=== PATIENT | female | born 1955 | race Caucasian/White ===

== ENCOUNTER 2016-12-08 11:19 | Outpatient (CLI) | payer OTHER ==
[2016-12-08 19:33] LABS: BASOPHILS % (AUTO) 0.5 %; EOSINOPHILS # (AUTO) 0.1 10^3/uL (0.0-0.7); EOSINOPHILS % (AUTO) 2.2 %; HCT - HEMATOCRIT 44.6 % (37.0-47.0); HGB - HEMOGLOBIN 14.9 g/dL (12.0-16.0); LYMPHOCYTES # (AUTO) 1.3 10^3/uL (1.5-3.5); LYMPHOCYTES % (AUTO) 23.4 %; MEAN CORPUSCULAR HEMOGLOBIN 32.3 pg (27.0-31.0); MEAN CORPUSCULAR HGB CONC 33.5 g/dL (32.0-36.0); MEAN CORPUSCULAR VOLUME 96.3 fL (81.0-99.0); MEAN PLATELET VOLUME 8.3 fL (7.9-10.8); MONOCYTES # (AUTO) 0.2 10^3/uL (0.0-1.0); MONOCYTES % (AUTO) 2.8 %; NEUTROPHILS % (AUTO) 71.1 %; NUCLEATED RED BLOOD CELLS AUTO 0.3 /100WBC; RED BLOOD COUNT 4.63 10^6/uL (4.20-5.40); RED CELL DISTRIBUTION WIDTH 12.3 % (12.0-15.0); UNCORRECTED WHITE BLOOD COUNT 5.7 x10^3/uL; WHITE BLOOD COUNT 5.7 x10^3/uL (4.8-10.8)
[2016-12-08 19:59] LABS: ALBUMIN/GLOBULIN RATIO 1.3 (1.0-2.2); BILIRUBIN,TOTAL 1.1 mg/dL (0.2-1.0); BUN - BLOOD UREA NITROGEN 13 mg/dL (6-20); CALCIUM 9.1 mg/dL (8.5-10.3); CARBON DIOXIDE - CO2 26 mmol/L (21-32); CHLORIDE 104 mmol/L (101-111); CHOLESTEROL 241 mg/dL; CREATININE 0.8 mg/dL (0.4-1.0); GFR - MDRD 73 (>89); GLUCOSE 99 mg/dL (70-100); HDL CHOLESTEROL 60 mg/dL; LDL/HDL RATIO 2.3 (<4.4); SODIUM 138 mmol/L (135-145); TOTAL PROTEIN 7.1 g/dL (6.7-8.2); TRIGLYCERIDES 209 mg/dL; VLDL CHOLESTEROL 42 mg/dL
[2016-12-08 20:54] LABS: HEMOGLOBIN A1C 0.57 g/dL
== END 2016-12-08 11:20 | disposition home or self-care (01) ==
LOC: LAB.WCP 11:19
PROVIDERS: ATTEND Family Medicine
DX: R73.9 Hyperglycemia, unspecified (principal); I10 Essential (primary) hypertension; K21.9 Gastro-esophageal reflux disease without esophagitis; E78.5 Hyperlipidemia, unspecified; Z79.899 Other long term (current) drug therapy
CPT/HCPCS: 36415; 80053; 80061; 83036; 84443; 85025

== ENCOUNTER 2016-12-30 10:49 | Outpatient (CLI) | payer OTHER ==
--- NOTE | 2016-12-31 13:24 | Mammography Report ---
DIGITAL BILATERAL SCREENING MAMMOGRAM: 12/30/2016 CLINICAL HISTORY: A 61-year-old female in for routine screening mammogram. Family history indicates her mother had breast cancer at age 65. Patient has had no prior breast surgeries. COMPARISON: 10/30/2006, 08/29/2013, 05/08/2015. TECHNIQUE: Craniocaudad and oblique lateral views of each breast were obtained with Hologic full-field digital mammography. FINDINGS: Breasts are almost entirely composed of fat. There is some minimal glandular hyperplasia in each subareolar region. Patient has developed some calcifications in the 12 to 1 o'clock position of the right breast since preceding mammogram of 05/08/2015. These calcifications are in the anterior aspect of the right breast approximately 4 cm superior to the right nipple. Recommend patient return for magnification craniocaudad and lateral medial view for further evaluation. No significant masses are detected in the breasts. No other changes are seen. IMPRESSION: PATIENT HAS DEVELOPED SOME CALCIFICATIONS IN THE 12 TO 1 O'CLOCK POSITION OF THE ANTERIOR ASPECT OF THE RIGHT BREAST SINCE PRECEDING MAMMOGRAM OF 06/07/2015. RECOMMEND PATIENT RETURN FOR MAGNIFICATION VIEWS OF THE RIGHT BREAST FOR FURTHER EVALUATION. BI-RADS 0. Incomplete. Needs additional imaging evaluation. Magnification views of the right breast. JOB #: [id number] EXT JOB #: [id number] TAINA
== END 2016-12-30 10:50 | disposition home or self-care (01) ==
LOC: DI 10:49
PROVIDERS: ATTEND Physician Assistant Medical
DX: Z12.31 Encounter for screening mammogram for malignant neoplasm of breast (principal); R92.1 Mammographic calcification found on diagnostic imaging of breast
CPT/HCPCS: 77067

== ENCOUNTER 2017-01-27 11:16 | Outpatient (CLI) | payer OTHER ==
--- NOTE | 2017-01-27 13:56 | Mammography Report ---
DIGITAL DIAGNOSTIC RIGHT BREAST MAMMOGRAM: 01/27/2017 CLINICAL HISTORY: A 61-year-old asymptomatic female recalled from a screening mammogram (12/30/2016) for developing calcifications. TECHNIQUE: Magnification CC/true lateral and open true lateral views obtained. FINDINGS: Scattered fibroglandular tissue is again identified. There are loosely grouped, predominantly round calcifications in the 12 to 1 o' clock middle position. There is no definite pleomorphism. There is no associated mass or distortion. Recommend follow-up magnification views to confirm benign progression or stability. The remainder of the parenchymal pattern is unremarkable. IMPRESSION: BIRADS CATEGORY 3 - PROBABLY BENIGN. RECOMMEND FOLLOWUP MAGNIFICATION VIEWS IN SIX MONTHS. STANDARD QUALIFYING STATEMENTS 1. This examination was reviewed with the aid of Computer-Aided Detection (CAD). 2. A negative or benign imaging report should not delay biopsy if clinically suspicious findings are present. Consider surgical consultation if warranted. More than 5% of cancers are not identified by imaging. 3. Dense breasts may obscure an underlying neoplasm. JOB #: [id number] EXT JOB #: MTDD
== END 2017-01-27 11:17 | disposition home or self-care (01) ==
LOC: DI 11:16
PROVIDERS: ATTEND Physician Assistant Medical
DX: R92.1 Mammographic calcification found on diagnostic imaging of breast (principal)

== ENCOUNTER 2017-03-03 23:38 | Emergency (ER) | payer OTHER ==
--- NOTE | 2017-03-04 00:32 | ED Physician Documentation ---
PD HPI DYSPNEA - Stated complaint Stated Complaint: SOA - Chief complaint Chief Complaint: Resp - History obtained from History obtained from: Patient, Family - History of Present Illness Timing - onset: Yesterday Timing - onset during: Rest Timing - duration: Days (1) Timing - details: Gradual onset, Still present Inciting event(s): URI Improved by: Rest Worsened by: Coughing Associated symptoms: Cough, Wheezing Similar symptoms before: Diagnosis (uri) Recently seen: Not recently seen - Additional information Additional information: 62-year-old female has returned from a cruise in the [place] and she has developed cough congestion and wheezing. She has not had fever with this she does have significant postnasal drainage. Review of Systems Constitutional: reports: Myalgias. denies: Fever Eyes: denies: Decreased vision Ears: denies: Ear pain Nose: reports: Rhinorrhea / runny nose, Congestion Throat: reports: Sore throat Cardiac: denies: Chest pain / pressure, Palpitations Respiratory: reports: Cough, Wheezing. denies: Dyspnea GI: denies: Abdominal Pain, Nausea, Vomiting : denies: Dysuria, Frequency PD PAST MEDICAL HISTORY - Past Medical History Cardiovascular: Hypertension, High cholesterol Respiratory: None Endocrine/Autoimmune: None GI: GERD, GI bleed, Other : None HEENT: Chronic vision loss Psych: Claustrophobia Musculoskeletal: None Derm: None - Past Surgical History Past Surgical History: No General: Colonoscopy, EGD Derm: Other - Present Medications Home Medications: Ambulatory Orders Medication Instructions Recorded Confirmed Epinephrine [Epipen] 0.3 mg IM ONCE PRN #2 unit 02/01/13 06/25/15 Hydrochlorothiazide 25 mg PO 08/02/13 06/25/15 Metoprolol Tartrate 25 mg PO 08/02/13 06/25/15 Multivitamin [Multi-Vitamin Daily] 1 DAILY 06/25/15 06/25/15 Albuterol Sulf [Ventolin Hfa 1 - 2 puffs INH Q4HR PRN #1 inhaler 03/04/17 Inhaler] Azithromycin [Zithromax] 250 mg PO DAILY #6 tablet 03/04/17 Benzonatate [Tessalon] 100 - 200 mg PO TID PRN #20 capsule 03/04/17 - Allergies Allergies/Adverse Reactions: Allergies Allergy/AdvReac Type Severity Reaction Status Date / Time adhesive Allergy Rash Verified 09/19/17 23:47 latex Allergy Hives Verified 03/03/17 23:47 venom-honey bee Allergy throat Verified 03/03/17 23:47 [bee venom (honey bee)] swelling - Social History Does the pt smoke?: No Smoking Status: Never smoker Does the pt drink ETOH?: Yes Does the pt have substance abuse?: No PD ED PE NORMAL - Vitals Vital signs reviewed: Yes (Hypertensive) - General General: No acute distress, Well developed/nourished - HEENT HEENT: Atraumatic, PERRL, EOMI, Other (Both TMs are erythematous with indistinct landmarks.Pharynx is with mild erythema.) - Neck Neck: Supple, no meningeal sign, No bony TTP - Cardiac Cardiac: RRR, No murmur - Respiratory Respiratory: No respiratory distress, Other (Diminished breath sounds.) - Abdomen Abdomen: Soft, Non tender - Back Back: No CVA TTP, No spinal TTP - Derm Derm: Normal color, Warm and dry, No rash - Extremities Extremities: No deformity, No edema - Neuro Neuro: No motor deficit, No sensory deficit - Psych Psych: Normal mood, Normal affect Results - Vitals Vitals: Vital Signs - 24 hr 03/03/17 03/04/17 23:45 02:19 Temperature 37.1 C Heart Rate 80 69 Respiratory 18 17 Rate Blood Pressure 156/82 H 146/87 H O2 Saturation 97 97 Oxygen O2 Source Room air - Labs Labs: Laboratory Tests 03/04/17 00:40 Group A Strep Rapid Negative - Rads (name of study) 2 view chest Radiology: Prelim report reviewed (Impression: Negative chest.), EMP read indepedently, See rad report PD MEDICAL DECISION MAKING - ED course Complexity details: reviewed results, re-evaluated patient, considered differential, d/w patient, d/w family ED course: 8-year-old female with a cough and congestion has bilateral otitis on examination she does have some reactive airway as well and she is administered a DuoNeb treatment with some improvement. She subsequently administered dexamethasone 10 mg orally and we will start her on some azithromycin. Departure - Departure Disposition: 01 Home, Self Care Clinical Impression: Otitis media Qualifiers: Otitis media type: suppurative Chronicity: acute Laterality: bilateral Recurrence: not specified as recurrent Spontaneous tympanic membrane rupture: without spontaneous rupture Qualified Code(s): H66.003 - Acute suppurative otitis media without spontaneous rupture of ear drum, bilateral Condition: Stable Instructions: ED Otitis Media Acute Adult Follow-Up: Lainey Monsivais PA-C [Primary Care Provider] - Prescriptions: Albuterol Sulf [Ventolin Hfa Inhaler] 1 - 2 puffs INH Q4HR PRN #1 inhaler PRN Reason: Shortness Of Air/Wheezing Benzonatate [Tessalon] 100 - 200 mg PO TID PRN #20 capsule PRN Reason: Cough Azithromycin [Zithromax] 250 mg PO DAILY #6 tablet Discharge Date/Time: 03/04/17 02:26
[2017-03-04] MEDS ORDERED: IPRATROPIUM/ALBUTEROL 3 ML NEB INH STA (00:46)
[2017-03-04] MEDS ORDERED: IPRATROPIUM/ALBUTEROL 3 ML NEB INH ONE ×2 (00:53→01:16)
[2017-03-04 01:32] LABS: RAPID STREP SCREEN REAGENT QC YELLOW (YELLOW)
[2017-03-04] MEDS ORDERED: IOPAMIDOL-300 100 ML VIAL IVP ONE (01:40)
--- NOTE | 2017-03-04 01:45 | XRAY Preliminary Report ---
Exam: XR Chest 2 View PA/LAT IMPRESSION: Negative chest. [facility] SITE ID: [id number]
--- NOTE | 2017-03-04 01:48 | XRAY Report ---
EXAM: CHEST RADIOGRAPHY EXAM DATE: 03/04/2017 01:17 AM. CLINICAL HISTORY: Shortness of breath COMPARISON: None. TECHNIQUE: 2 views. FINDINGS: Lungs/Pleura: No focal opacities evident with exception of minimal left lung base probable linear ate lectasis or scarring. No pleural effusion. No pneumothorax. Normal volumes. Mediastinum: Heart and mediastinal contours are unremarkable. Other: None. IMPRESSION: Negative chest. [facility] Referring Provider Line: [phone] SITE ID: [id number]
[2017-03-04] MEDS ORDERED: DEXAMETHASONE 10 MG/ML VIAL PO STA (02:09)
[2017-03-04] MEDS ORDERED: DEXAMETHASONE 10 MG/ML VIAL ONE (02:18)
[2017-03-04 02:20] VITALS: BP 146/87
== END 2017-03-04 02:26 | disposition home or self-care (01) ==
LOC: ED 23:38
DX: H66.003 Acute suppurative otitis media without spontaneous rupture of ear drum, bilateral (principal); I10 Essential (primary) hypertension; E78.00 Pure hypercholesterolemia, unspecified; K21.9 Gastro-esophageal reflux disease without esophagitis
CPT/HCPCS: 71020; 87070; 87430; 99283; 99284; J7620

== ENCOUNTER 2017-08-05 10:52 | Outpatient (CLI) | payer OTHER ==
--- NOTE | 2017-08-05 14:52 | Mammography Report ---
DIGITAL DIAGNOSTIC RIGHT MAMMOGRAM: 08/05/2017 CLINICAL INDICATION: Followup calcifications. COMPARISON: 01/27/2017, 12/30/2016, 05/08/2015, 08/29/2013. TECHNIQUE: Right CC, MLO, true lateral, spot magnification views of the right breast again demonstrates scattered fibroglandular densities. The calcifications in question, in the right upper central anterior breast remain punctate on spot magnification views. No developing pleomorphism is seen. No associated mass or architectural distortion is appreciated. IMPRESSION: PROBABLE BENIGN CALCIFICATIONS. RECOMMENDATIONS: Diagnostic bilateral mammogram in 6 months, to assure stability. BIRADS category 3, probable benign findings. STANDARD QUALIFYING STATEMENTS 1. This examination was reviewed with the aid of Computed-Aided Detection (CAD). 2. A negative or benign imaging report should not delay biopsy if clinically suspicious findings are present. Consider surgical consultation if warranted. More than 5% of cancers are not identified by imaging. 3. Dense breasts may obscure an underlying neoplasm. TD: 08/05/2017 14:51
== END 2017-08-05 10:53 | disposition home or self-care (01) ==
LOC: DI 10:52
PROVIDERS: ATTEND Physician Assistant Medical
DX: R92.1 Mammographic calcification found on diagnostic imaging of breast (principal)

== ENCOUNTER 2017-09-29 08:00 | Outpatient (CLI) | payer OTHER ==
[2017-09-29 19:08] LABS: BASOPHILS # (AUTO) 0.1 10^3/uL (0.0-0.1); BASOPHILS % (AUTO) 1.4 %; EOSINOPHILS # (AUTO) 0.1 10^3/uL (0.0-0.7); EOSINOPHILS % (AUTO) 1.4 %; LYMPHOCYTES # (AUTO) 1.8 10^3/uL (1.5-3.5); LYMPHOCYTES % (AUTO) 29.2 %; MEAN CORPUSCULAR HEMOGLOBIN 31.1 pg (27.0-31.0); MEAN CORPUSCULAR HGB CONC 32.9 g/dL (32.0-36.0); MEAN CORPUSCULAR VOLUME 94.6 fL (81.0-99.0); MEAN PLATELET VOLUME 8.4 fL (7.9-10.8); MONOCYTES # (AUTO) 0.5 10^3/uL (0.0-1.0); MONOCYTES % (AUTO) 7.7 %; NEUTROPHILS # (AUTO) 3.7 10^3/uL (1.5-6.6); NEUTROPHILS % (AUTO) 60.3 %; PLT - PLATELET COUNT 304 10^3/uL (130-450); RED BLOOD COUNT 4.81 10^6/uL (4.20-5.40); RED CELL DISTRIBUTION WIDTH 12.4 % (12.0-15.0); WHITE BLOOD COUNT 6.1 x10^3/uL (4.8-10.8)
[2017-09-29 19:30] LABS: HB2 TOTAL 16.9 g/dL; HEMOGLOBIN A1C 0.56 g/dL; HEMOGLOBIN A1C % 5.2 % (4.6-6.2)
[2017-09-29 19:37] LABS: CHOL/HDL RATIO 4.9 (<4.4); CHOLESTEROL 274 mg/dL; HDL CHOLESTEROL 56 mg/dL; LDL CHOLESTEROL,CALCULATED 158 mg/dL; LDL/HDL RATIO 2.8 (<4.4); VLDL CHOLESTEROL 60 mg/dL
== END 2017-09-29 08:01 | disposition home or self-care (01) ==
LOC: LAB.WCP 08:00
PROVIDERS: ATTEND Family Medicine
DX: Z00.00 Encounter for general adult medical examination without abnormal findings (principal); R73.9 Hyperglycemia, unspecified; E78.5 Hyperlipidemia, unspecified
CPT/HCPCS: 36415; 80061; 83036; 83721; 84443; 85025

== ENCOUNTER 2017-12-08 08:00 | Outpatient (CLI) | payer OTHER ==
[2017-12-08 19:13] LABS: ALBUMIN 4.1 g/dL (3.2-5.5); ALBUMIN/GLOBULIN RATIO 1.2 (1.0-2.2); BILIRUBIN,TOTAL 1.3 mg/dL (0.2-1.0); CREATININE 0.8 mg/dL (0.4-1.0); TOTAL PROTEIN 7.6 g/dL (6.7-8.2)
== END 2017-12-08 08:01 | disposition home or self-care (01) ==
LOC: LAB.WCP 08:00
PROVIDERS: ATTEND Physician Assistant Medical
DX: Z00.00 Encounter for general adult medical examination without abnormal findings (principal)
CPT/HCPCS: 36415; 80053

== ENCOUNTER 2017-12-16 02:11 | Emergency (ER) | payer OTHER ==
[2017-12-16] MEDS ORDERED: ONDANSETRON ODT 4 MG TABLET TL STA (02:30)
--- NOTE | 2017-12-16 03:34 | ED Physician Documentation ---
History of Present Illness - Stated complaint Stated Complaint: SOA - Chief complaint Chief Complaint: Resp - History obtained from History obtained from: Patient - History of Present Illness Timing: Today Improved by: nothing Worsened by: no exacerbating factors (n/v) but inciting factor likely was first dose of codeine-containing cough syrup - Additonal information Additional information: 1 week of cough, mild and intermittent dyspnea. Saw PMD earlier today, was prescribed albuterol MDI, benzonatate, guaifenesin AC. Although she has had codeine in the past without recollection of side effects, within 30-40 minutes of her first dose of the guiafenesin AC, patient experienced nausea and vomiting which persists in ED. She developed bifrontal ARORA subsequent to n/v onset. Review of Systems Constitutional: denies: Fever, Chills, Sweats Throat: denies: Sore throat Cardiac: reports: Reviewed and negative Respiratory: reports: Dyspnea, Cough GI: reports: Nausea, Vomiting. denies: Abdominal Pain, Constipation, Diarrhea PD PAST MEDICAL HISTORY - Past Medical History Cardiovascular: Hypertension, High cholesterol Respiratory: None Endocrine/Autoimmune: None GI: GERD, GI bleed, Other : None HEENT: Chronic vision loss Psych: Claustrophobia Musculoskeletal: None Derm: None - Past Surgical History Past Surgical History: No General: Colonoscopy, EGD Derm: Other - Present Medications Home Medications: Ambulatory Orders Medication Instructions Recorded Confirmed Epinephrine [Epipen] 0.3 mg IM ONCE PRN #2 unit 02/01/13 06/25/15 Hydrochlorothiazide 25 mg PO 08/02/13 06/25/15 Metoprolol Tartrate 25 mg PO 08/02/13 06/25/15 Multivitamin [Multi-Vitamin Daily] 1 DAILY 06/25/15 06/25/15 Albuterol Sulf [Ventolin Hfa 1 - 2 puffs INH Q4HR PRN #1 inhaler 03/04/17 Inhaler] Benzonatate [Tessalon] 100 - 200 mg PO TID PRN #20 capsule 03/04/17 guaiFENesin [Guaifenesin] 100 mg PO 12/16/17 12/16/17 predniSONE [Prednisone] 20 mg PO DAILY 12/16/17 traMADol [Ultram] 50 - 100 mg PO Q6H PRN #20 tablet 12/16/17 - Allergies Allergies/Adverse Reactions: Allergies Allergy/AdvReac Type Severity Reaction Status Date / Time adhesive Allergy Rash Verified 12/16/17 02:35 latex Allergy Hives Verified 12/16/17 02:35 venom-honey bee Allergy throat Verified 12/16/17 02:35 [bee venom (honey bee)] swelling - Social History Does the pt smoke?: No Smoking Status: Never smoker Does the pt drink ETOH?: Yes Does the pt have substance abuse?: No PD ED PE NORMAL - Vitals Vital signs reviewed: Yes - General General: Alert and oriented X 3, No acute distress (NAD except emesis x 1 during H+P), Well developed/nourished - Neck Neck: Supple, no meningeal sign - Cardiac Cardiac: RRR, No murmur - Respiratory Respiratory: No respiratory distress, Clear bilaterally - Abdomen Abdomen: Normal bowel sounds, Soft, Non tender, Non distended - Extremities Extremities: No edema Results - Vitals Vitals: Oxygen O2 Source Room air PD MEDICAL DECISION MAKING - ED course Complexity details: re-evaluated patient, considered differential, d/w patient ED course: Given PO zofran without improvement. Subsequently given phenergan, ultram (for headache), and decadron (for bronchitis, spastic cough). On reevaluation after these medications, she is in NAD and reports resolution of her n/v and significant improvement in her headache. Given second dose of ultram and then discharged. - Sepsis Event Vital Signs: Oxygen O2 Source Room air Departure - Departure Disposition: 01 Home, Self Care Clinical Impression: Bronchitis Vomiting Qualifiers: Vomiting type: unspecified Vomiting Intractability: non-intractable Nausea presence: with nausea Qualified Code(s): R11.2 - Nausea with vomiting, unspecified Condition: Good Instructions: ED Upper Resp Infec No Abx Tx, ED Nausea Vomiting Follow-Up: Lainey Monsivais PA-C [Primary Care Provider] - Prescriptions: traMADol [Ultram] 50 - 100 mg PO Q6H PRN #20 tablet PRN Reason: Pain Discharge Date/Time: 12/16/17 05:38
[2017-12-16] MEDS ORDERED: traMADol 50 MG TABLET PO STA ×2 (03:58→05:27)
[2017-12-16] MEDS ORDERED: PROMETHAZINE 25 MG TABLET PO STA (03:58)
[2017-12-16] MEDS ORDERED: DEXAMETHASONE 10 MG/ML VIAL PO STA (03:58)
[2017-12-16 05:33] VITALS: BP 133/75
== END 2017-12-16 05:38 | disposition home or self-care (01) ==
LOC: ED 02:11
DX: J40 Bronchitis, not specified as acute or chronic (principal); R11.2 Nausea with vomiting, unspecified; I10 Essential (primary) hypertension
CPT/HCPCS: 99283; A9270; Q0162; Q0169

== ENCOUNTER 2017-12-19 09:45 | Emergency (ER) | payer OTHER ==
--- NOTE | 2017-12-19 10:52 | ED Physician Documentation ---
PD HPI DYSPNEA - Stated complaint Stated Complaint: SOA - Chief complaint Chief Complaint: Resp - History obtained from History obtained from: Patient - History of Present Illness Timing - onset: How many weeks ago (1) Timing - onset during: Rest, Light activity Timing - details: Gradual onset, Still present, Waxing and waning (she has had the cough worst at night. She had cough for a week, with some nausea along with it. Seen by PMD and got Rx for codeine cough med, which made her vomit. Seen in ER for the vomiting and was improved with Zofran and then given Rx for tramadol and steroid. Also had Albuterol MDI and Tessalon. She says the tramadol made her nauseated as well and did not help with the cough. Had trouble sleeping. Here due to persistent frequent cough that is keeping her from sleeping and also continues now during the day today. She says she had not used the Albuterol but only once.) Inciting event(s): URI Worsened by: Laying flat, Coughing Associated symptoms: Cough, Wheezing. No: Fever, Hemoptysis, Chest pain / discomfort, Palpitations, Bilateral edema Similar symptoms before: Has not had sx before Recently seen: Clinic, Emergency Dept Review of Systems Constitutional: reports: Myalgias. denies: Fever Nose: reports: Congestion. denies: Rhinorrhea / runny nose Throat: denies: Sore throat Cardiac: denies: Chest pain / pressure, Palpitations Respiratory: reports: Dyspnea, Cough. denies: Wheezing GI: reports: Nausea, Vomiting (after taking prior meds) Skin: denies: Rash, Lesions Neurologic: denies: Generalized weakness, Near syncope PD PAST MEDICAL HISTORY - Past Medical History Past Medical History: Yes Cardiovascular: Hypertension, High cholesterol Respiratory: None Endocrine/Autoimmune: None GI: GERD, GI bleed, Other : None HEENT: Chronic vision loss Psych: Claustrophobia Musculoskeletal: None Derm: None - Past Surgical History Past Surgical History: No General: Colonoscopy, EGD Derm: Other - Present Medications Home Medications: Ambulatory Orders Medication Instructions Recorded Confirmed Epinephrine [Epipen] 0.3 mg IM ONCE PRN #2 unit 02/01/13 06/25/15 Hydrochlorothiazide 25 mg PO 08/02/13 06/25/15 Metoprolol Tartrate 25 mg PO 08/02/13 06/25/15 Multivitamin [Multi-Vitamin Daily] 1 DAILY 06/25/15 06/25/15 Albuterol Sulf [Ventolin Hfa 1 - 2 puffs INH Q4HR PRN #1 inhaler 03/04/17 Inhaler] Benzonatate [Tessalon] 100 - 200 mg PO TID PRN #20 capsule 03/04/17 guaiFENesin [Guaifenesin] 100 mg PO 12/16/17 12/16/17 predniSONE [Prednisone] 20 mg PO DAILY 12/16/17 traMADol [Ultram] 50 - 100 mg PO Q6H PRN #20 tablet 12/16/17 HYDROcod/ACETAM 5/325 [[employer] 5/325] 1 tab PO Q6H PRN #15 tablet 12/19/17 Ondansetron Odt [Zofran] 4 mg TL Q6H PRN #15 tablet 12/19/17 - Allergies Allergies/Adverse Reactions: Allergies Allergy/AdvReac Type Severity Reaction Status Date / Time adhesive Allergy Rash Verified 12/19/17 10:09 latex Allergy Hives Verified 12/19/17 10:09 venom-honey bee Allergy throat Verified 12/19/17 10:09 [bee venom (honey bee)] swelling codeine AdvReac Emesis Verified 12/19/17 10:38 - Social History Does the pt smoke?: No Smoking Status: Never smoker Does the pt drink ETOH?: Yes Does the pt have substance abuse?: No PD ED PE NORMAL - Vitals Vital signs reviewed: Yes - General General: Alert and oriented X 3, No acute distress (but is having repetitive light cough, more with deep breathing, seems likely bronchospastic than phlegmatic. ), Well developed/nourished - HEENT HEENT: Pharynx benign - Neck Neck: Supple, no meningeal sign, No adenopathy - Cardiac Cardiac: RRR, No murmur - Respiratory Respiratory: No: Clear bilaterally (diffuse mild wheezing, and moderate tightness. No coarse nor fine crackles. ) - Abdomen Abdomen: Soft, Non tender - Back Back: No CVA TTP - Derm Derm: Normal color, Warm and dry - Extremities Extremities: No tenderness to palpate, Normal ROM s pain, No edema, No calf tenderness / cord - Neuro Neuro: Alert and oriented X 3, No motor deficit, Normal speech Results - Vitals Vitals: Oxygen O2 Source Room air PD MEDICAL DECISION MAKING - ED course Complexity details: reviewed results, re-evaluated patient (she felt okay and less coughing (but still some) after neb and hydrocodone. No nausea though. ), considered differential, d/w patient - Sepsis Event Vital Signs: Oxygen O2 Source Room air Departure - Departure Disposition: 01 Home, Self Care Clinical Impression: Upper respiratory infection Qualifiers: URI type: unspecified URI Qualified Code(s): J06.9 - Acute upper respiratory infection, unspecified Dyspnea Qualifiers: Dyspnea type: shortness of breath Qualified Code(s): R06.02 - Shortness of breath Condition: Stable Record reviewed to determine appropriate education?: Yes Prescriptions: HYDROcod/ACETAM 5/325 [[employer] 5/325] 1 tab PO Q6H PRN #15 tablet PRN Reason: Pain Ondansetron Odt [Zofran] 4 mg TL Q6H PRN #15 tablet PRN Reason: Nausea / Vomiting Comments: Continue the steroid script for a week. Use the Albuterol inhaler 2-3 puffs 4 times daily for a week then as needed. Add Hydrocodone for couhg, with Zofran if needed for nausea. Recheck if not improving over the next few days. Discharge Date/Time: 12/19/17 12:06
[2017-12-19] MEDS ORDERED: ALBUTEROL NEB 2.5 MG/3 ML INH STA (11:23)
[2017-12-19] MEDS ORDERED: HYDROcod/ACETAM 5/325 MG TABLET PO STA (11:23)
[2017-12-19] MEDS ORDERED: ONDANSETRON ODT 4 MG TABLET TL STA (11:23)
[2017-12-19 12:06] VITALS: BP 146/83
== END 2017-12-19 12:06 | disposition home or self-care (01) ==
LOC: ED 09:45
DX: J06.9 Acute upper respiratory infection, unspecified (principal); R06.02 Shortness of breath
CPT/HCPCS: 94640; 94664; 99283; A9270; Q0162

== ENCOUNTER 2018-04-08 09:53 | Outpatient (CLI) | payer OTHER ==
[2018-04-08 20:31] LABS: CHOLESTEROL 238 mg/dL; HDL CHOLESTEROL 60 mg/dL; LDL CHOLESTEROL,CALCULATED 143 mg/dL; LDL/HDL RATIO 2.4 (<4.4); VLDL CHOLESTEROL 35 mg/dL
== END 2018-04-08 09:54 ==
LOC: LAB.WCP 09:53
PROVIDERS: ATTEND Physician Assistant Medical
DX: E78.5 Hyperlipidemia, unspecified (principal)
CPT/HCPCS: 36415; 80061; 83721

== ENCOUNTER 2018-07-29 10:33 | Outpatient (CLI) | payer OTHER ==
--- NOTE | 2018-07-29 11:32 | Mammography Report ---
Reason: PREVENTIVE HEALTH CARE, ABN MAMMO 07/2017 Procedure Date: 07/29/2018 Accession Number: [id number] / [id number] Procedure: KEILA - Diagnostic Dig Bilat CPT Code: FULL RESULT: EXAM: Diagnostic Dig Bilat DATE: 07/29/2018 11:25 AM CLINICAL HISTORY: Delayed follow-up microcalcifications right breast TECHNIQUE: Bilateral CC and MLO projections with additional right magnification views. COMPARISON: 08/05/2017, 01/27/2017, 12/30/2016, 05/08/2015 and 08/29/2013 FINDINGS: There are scattered fibroglandular densities. No dominant mass, architectural distortion, skin thickening, clustered suspicious microcalcifications, or significant interval change. Punctate benign-appearing right breast calcifications are stable. IMPRESSION: Benign findings RECOMMENDATION: Follow-up routine screening in 12 months. BIRADS CATEGORY 2: Benign findings STANDARD QUALIFYING STATEMENTS: 1. This examination was not reviewed with the aid of Computer-Aided Detection (CAD). 2. A negative or benign imaging report should not delay biopsy if clinically suspicious findings are present. Consider surgical consultation if warrented. More than 5% of cancers are not identified by imaging. 3. Dense breasts may obscure an underlying neoplasm. 4. This examination was reviewed with the aid of 3D imaging (tomography).
== END 2018-07-29 10:34 | disposition home or self-care (01) ==
LOC: DI 10:33
PROVIDERS: ATTEND Physician Assistant Medical
DX: R92.8 Other abnormal and inconclusive findings on diagnostic imaging of breast (principal)
CPT/HCPCS: 77066

== ENCOUNTER 2019-03-03 08:00 | Outpatient (CLI) | payer OTHER ==
[2019-03-03 18:30] LABS: BASOPHILS # (AUTO) 0.1 10^3/uL (0.0-0.1); BASOPHILS % (AUTO) 0.8 %; EOSINOPHILS # (AUTO) 0.2 10^3/uL (0.0-0.7); EOSINOPHILS % (AUTO) 1.9 %; HGB - HEMOGLOBIN 14.5 g/dL (12.0-16.0); LYMPHOCYTES # (AUTO) 2.3 10^3/uL (1.5-3.5); LYMPHOCYTES % (AUTO) 25.5 %; MEAN CORPUSCULAR HEMOGLOBIN 31.5 pg (27.0-31.0); MEAN CORPUSCULAR HGB CONC 33.2 g/dL (32.0-36.0); MEAN PLATELET VOLUME 10.4 fL (7.9-10.8); MONOCYTES # (AUTO) 0.8 10^3/uL (0.0-1.0); MONOCYTES % (AUTO) 8.6 %; NEUTROPHILS # (AUTO) 5.6 10^3/uL (1.5-6.6); NEUTROPHILS % (AUTO) 62.8 %; PLT - PLATELET COUNT 307 10^3/uL (130-450); RED CELL DISTRIBUTION WIDTH 12.2 % (12.0-15.0)
[2019-03-03 18:50] LABS: HB2 TOTAL 14.7 g/dL; HEMOGLOBIN A1C 0.51 g/dL; HEMOGLOBIN A1C % 5.3 % (4.6-6.2)
[2019-03-03 18:58] LABS: ALBUMIN/GLOBULIN RATIO 1.3 (1.0-2.2); ALKALINE PHOSPHATASE 56 IU/L (42-121); ALT ALANINE AMINOTRANSFERASE 48 IU/L (10-60); AST ASPARTATE AMINOTRANSFERASE 39 IU/L (10-42); BUN - BLOOD UREA NITROGEN 17 mg/dL (6-20); CALCIUM 8.9 mg/dL (8.5-10.3); CARBON DIOXIDE - CO2 28 mmol/L (21-32); CHLORIDE 103 mmol/L (101-111); CHOL/HDL RATIO 4.1 (<4.4); CHOLESTEROL 233 mg/dL; CREATININE 0.7 mg/dL (0.4-1.0); GFR - MDRD 85 (>89); GLUCOSE 94 mg/dL (70-100); HDL CHOLESTEROL 57 mg/dL; LDL CHOLESTEROL,CALCULATED 128 mg/dL; LDL/HDL RATIO 2.2 (<4.4); SODIUM 138 mmol/L (135-145); TOTAL PROTEIN 7.1 g/dL (6.7-8.2); VLDL CHOLESTEROL 48 mg/dL
== END 2019-03-03 23:59 | disposition home or self-care (01) ==
LOC: LAB.WCP 08:00
PROVIDERS: ATTEND Physician Assistant Medical
DX: Z00.00 Encounter for general adult medical examination without abnormal findings (principal); I10 Essential (primary) hypertension; E78.5 Hyperlipidemia, unspecified; R73.9 Hyperglycemia, unspecified
CPT/HCPCS: 36415; 80053; 80061; 83036; 83721; 84443; 85025

== ENCOUNTER 2019-12-08 08:36 | Outpatient (CLI) | payer OTHER ==
--- NOTE | 2019-12-08 15:54 | XRAY Report ---
Reason: RIGHT THUMB PAIN Procedure Date: 12/08/2019 Accession Number: [id number] / [id number] Procedure: WCP - Hand 2 View RT CPT Code: Final Report FULL RESULT: PROCEDURE: Hand 2 View RT INDICATIONS: RIGHT THUMB PAIN TECHNIQUE: 2 views of the hand(s) acquired. COMPARISON: None FINDINGS: Bones: No fractures or dislocations. No suspicious bony lesions. Very minimal early first CMC degenerative change. Soft tissues: No suspicious soft tissue calcifications. IMPRESSION: Very minimal early first CMC degenerative change. Reviewed by: Kelly Ferguson MD on 12/08/2019 3:52 PM PDT Approved by: Kelly Ferguson MD on 12/08/2019 3:52 PM PDT Station ID: [id number]
--- NOTE | 2019-12-08 15:57 | XRAY Report ---
Reason: CERVICAL RADICULOPATHY Procedure Date: 12/08/2019 Accession Number: [id number] / [id number] Procedure: WCP - Cervical Spine 2 View CPT Code: Final Report FULL RESULT: PROCEDURE: Cervical Spine 2 View INDICATIONS: CERVICAL RADICULOPATHY TECHNIQUE: 2 view(s) of the cervical spine were acquired. COMPARISON: None. FINDINGS: Bones: No fractures or dislocations to the C7-T1 level. The lateral masses of C1 appear intact on the odontoid view. No suspicious bony lesions. Multilevel uncovertebral hypertrophy is present. There is moderate disc space narrowing at C5-6 and C6-7, mild at C3-4, C4-5. Minimal anterior osteophytes are noted. Soft tissues: No prevertebral soft tissue swelling. IMPRESSION: Degenerative changes most notable at C5-6 and C6-7 as above. Reviewed by: Kelly Ferguson MD on 12/08/2019 3:55 PM PDT Approved by: Kelly Ferguson MD on 12/08/2019 3:55 PM PDT Station ID: [id number]
== END 2019-12-08 23:59 | disposition home or self-care (01) ==
LOC: DI.WCP 08:36
PROVIDERS: ATTEND Physician Assistant Medical
DX: M18.11 Unilateral primary osteoarthritis of first carpometacarpal joint, right hand (principal); M47.812 Spondylosis without myelopathy or radiculopathy, cervical region
CPT/HCPCS: 72040

== ENCOUNTER 2020-03-07 11:53 | Outpatient (CLI) | payer OTHER ==
[2020-03-07 12:20] LABS: BASOPHILS # (AUTO) 0.1 10^3/uL (0.0-0.1); BASOPHILS % (AUTO) 1.1 %; EOSINOPHILS # (AUTO) 0.1 10^3/uL (0.0-0.7); HGB - HEMOGLOBIN 14.9 g/dL (12.0-16.0); LYMPHOCYTES # (AUTO) 2.1 10^3/uL (1.5-3.5); MEAN CORPUSCULAR HEMOGLOBIN 32.1 pg (27.0-31.0); MEAN CORPUSCULAR HGB CONC 33.5 g/dL (32.0-36.0); MEAN CORPUSCULAR VOLUME 95.9 fL (81.0-99.0); MEAN PLATELET VOLUME 9.3 fL (7.9-10.8); MONOCYTES # (AUTO) 0.6 10^3/uL (0.0-1.0); MONOCYTES % (AUTO) 8.9 %; NEUTROPHILS # (AUTO) 3.7 10^3/uL (1.5-6.6); NEUTROPHILS % (AUTO) 55.2 %; PLT - PLATELET COUNT 283 10^3/uL (130-450); RED BLOOD COUNT 4.64 10^6/uL (4.20-5.40); RED CELL DISTRIBUTION WIDTH 12.2 % (12.0-15.0); WHITE BLOOD COUNT 6.7 x10^3/uL (4.8-10.8)
[2020-03-07 12:38] LABS: ALBUMIN 4.1 g/dL (3.2-5.5); ALBUMIN/GLOBULIN RATIO 1.2 (1.0-2.2); ALKALINE PHOSPHATASE 57 IU/L (42-121); ALT ALANINE AMINOTRANSFERASE 73 IU/L (10-60); AST ASPARTATE AMINOTRANSFERASE 51 IU/L (10-42); BUN - BLOOD UREA NITROGEN 15 mg/dL (6-20); CALCIUM 9.5 mg/dL (8.5-10.3); CARBON DIOXIDE - CO2 29 mmol/L (21-32); CHLORIDE 103 mmol/L (101-111); CHOL/HDL RATIO 4.6 (<4.4); CHOLESTEROL 289 mg/dL; CREATININE 0.8 mg/dL (0.4-1.0); GLUCOSE 108 mg/dL (70-100); HDL CHOLESTEROL 63 mg/dL; LDL CHOLESTEROL,CALCULATED 163 mg/dL; LDL/HDL RATIO 2.6 (<4.4); SODIUM 142 mmol/L (135-145); TOTAL PROTEIN 7.5 g/dL (6.7-8.2); VLDL CHOLESTEROL 63 mg/dL
== END 2020-03-07 11:54 | disposition home or self-care (01) ==
LOC: LAB 11:53
PROVIDERS: ATTEND Physician Assistant Medical
DX: Z00.00 Encounter for general adult medical examination without abnormal findings (principal)
CPT/HCPCS: 36415; 80053; 80061; 83721; 84443; 85025

== ENCOUNTER 2020-04-05 11:16 | Outpatient (CLI) | payer OTHER ==
[2020-04-05 12:06] LABS: ALBUMIN 4.3 g/dL (3.2-5.5); ALBUMIN/GLOBULIN RATIO 1.3 (1.0-2.2); ALKALINE PHOSPHATASE 52 IU/L (42-121); ALT ALANINE AMINOTRANSFERASE 101 IU/L (10-60); AST ASPARTATE AMINOTRANSFERASE 71 IU/L (10-42); BUN - BLOOD UREA NITROGEN 15 mg/dL (6-20); CALCIUM 9.3 mg/dL (8.5-10.3); CARBON DIOXIDE - CO2 28 mmol/L (21-32); CHLORIDE 99 mmol/L (101-111); CHOL/HDL RATIO 4.8 (<4.4); CHOLESTEROL 277 mg/dL; CREATININE 0.8 mg/dL (0.4-1.0); GLUCOSE 101 mg/dL (70-100); HDL CHOLESTEROL 58 mg/dL; LDL CHOLESTEROL,CALCULATED 177 mg/dL; LDL/HDL RATIO 3.1 (<4.4); SODIUM 138 mmol/L (135-145); TOTAL PROTEIN 7.6 g/dL (6.7-8.2); VLDL CHOLESTEROL 42 mg/dL
== END 2020-04-05 11:17 | disposition home or self-care (01) ==
LOC: LAB 11:16
PROVIDERS: ATTEND Physician Assistant Medical
DX: E78.5 Hyperlipidemia, unspecified (principal)
CPT/HCPCS: 36415; 80053; 80061; 83721

== ENCOUNTER 2020-04-11 12:31 | Outpatient (CLI) | payer OTHER ==
--- NOTE | 2020-04-11 15:52 | CARDIAC PROCEDURE NOTE ---
DATE OF SERVICE: 04/11/2020 Physician: Karin Dumont MD, [facility] INDICATION: Chest pain. CARDIAC RISK FACTORS: Obesity, postmenopausal status, hypertension, hyperlipidemia, family history of early heart disease. PROCEDURE: After signing informed consent, the patient underwent a Marco- protocol treadmill stress test with nuclear myocardial perfusion imaging. RESTING HEART RATE: 65. PEAK HEART RATE: 132 (84% predicted maximum heart rate for age). RESTING BLOOD PRESSURE: 131/82. PEAK BLOOD PRESSURE: 156/87. The patient exercised for 4 minutes and 43 seconds on a Marco-protocol treadmill stress test. She achieved a peak heart rate of 132 (84% PMHR) and 6.7 METs. The patient developed shortness of breath quickly and was severely short of breath at peak. She rated her perceived exertion at 19/20 on the Cheryle scale at peak. Oxygen saturation was 100% at rest and dropped to 87% on room air at peak. The patient had no typical chest pain with exercise. RESTING EKG: Normal sinus rhythm, early repolarization. (Within normal limits). EKG AT PEAK: [address] depressions develop in leads V1 through V4. These recovered after 5 minutes of recovery. SUMMARY 1. Normal resting EKG. 2. Significant desaturation on room air (sats drop to 87%) with exercise and severe shortness of breath developed, but no chest pain. 3. Non-specific ST segment depressions develop at an adequate level of stress achieved with treadmill exercise. 4. Nuclear images showed: No scar, no ischemic, normal perfusion, normal LVEF >70%. IMPRESSION: 1. Poor exercise tolerance 2. Oxygen desaturation, significant, with exercise. 3. Normal cardiac stress test, no evidence of ischemia. RECOMMENDATION: 1. PFTs and Pulmonary evaluation. cc: Lainey Monsivais PA-C TD: 04/11/2020 15:42 TAINA
--- NOTE | 2020-04-11 18:19 | Nuclear Medicine Report ---
PROCEDURE: Rest and exercise myocardial perfusion SPECT with gated imaging and ejection fraction INDICATIONS: CHEST PAIN. RADIOPHARMACEUTICAL: 10.9 mCi Tc-99m Myoview IV at rest and 30.2 mCi Tc-99m Myoview IV at peak exerc ise. Dmd-ocp-ejfnynnr was performed. TECHNIQUE: Radiopharmaceutical was injected at peak stress test, and also at rest. SPECT images wer e obtained. SPECT myocardial perfusion images were displayed in short axis, horizontal long axis, an d vertical long axis views. Gated images were reviewed using Auto[employer] software. COMPARISON: None available. FINDINGS: Raw data: There is good myocardial labeling by radiotracer. No significant motion artifacts. Left ventricle function: Gated images demonstrate normal left ventricle wall thickening. No segment al wall motion abnormality. No transient ischemic dilation. The left ventricle resting end-diastolic volume is normal. Left ventricle stress ejection fraction is > 70%; normal values are above 45%. Myocardial perfusion: There are breast attenuation and shifting breast artifacts in the anterior wal l, which was improved on prone imaging. There is otherwise normal distribution of activity in the lef t and right ventricular myocardium. No definitive fixed or reversible perfusion defects to suggest m yocardial infarct or ischemia. IMPRESSION: 1. Normal myocardial perfusion images. 2. Normal left ventricular volume and systolic function. PQRS ATTESTATIONS: Measure 322 - Is this imaging test primarily performed on a low-risk surgery patient for preoperative evaluation within 30 days preceding their low-risk non-cardiac surgery? Low-risk surgery is defined as cardiac or myocardial infarction less than 1%, including (but not limited to) endoscopic pr ocedures, superficial procedures, cataract surgery, and excisional breast surgery: Answer: No Measure 323 - Is this imaging test performed primarily for the monitoring of an asymptomatic patient who had percutaneous coronary intervention on the visit date or within 2 years of the visit date? An swer: No Measure 324 - Is this imaging test performed primarily for the initial detection and risk assessment on an asymptomatic, low coronary heart disease patient? Low CHD risk definition = clinicians should consider the maximum number of available patient factors used to estimate risk based on [place] (A TP III criteria), typically age, gender, diabetes, smoking status, and use of blood pressure medicati on, and integrate age appropriate estimates for missing elements, such as LDL or standard blood press ure. Answer: No Reviewed by: Jamir Oliveira MD on 04/11/2020 6:17 PM PDT Approved by: Jamir Oliveira MD on 04/11/2020 6:17 PM PDT Station ID: [id number]
== END 2020-04-11 12:32 | disposition home or self-care (01) ==
LOC: DI 12:31
PROVIDERS: ATTEND Physician Assistant Medical
DX: R09.02 Hypoxemia (principal); R06.02 Shortness of breath; E66.9 Obesity, unspecified; Z78.0 Asymptomatic menopausal state; I10 Essential (primary) hypertension; E78.5 Hyperlipidemia, unspecified; Z82.49 Family history of ischemic heart disease and other diseases of the circulatory system
CPT/HCPCS: 78452; 93016; 93017; 93018; A9500

== ENCOUNTER 2020-10-09 12:13 | Outpatient (CLI) | payer OTHER ==
[2020-10-09 12:45] LABS: BASOPHILS # (AUTO) 0.1 10^3/uL (0.0-0.1); BASOPHILS % (AUTO) 0.8 %; EOSINOPHILS # (AUTO) 0.1 10^3/uL (0.0-0.7); EOSINOPHILS % (AUTO) 1.6 %; HCT - HEMATOCRIT 45.1 % (37.0-47.0); LYMPHOCYTES # (AUTO) 2.2 10^3/uL (1.5-3.5); LYMPHOCYTES % (AUTO) 29.4 %; MEAN CORPUSCULAR HEMOGLOBIN 31.6 pg (27.0-31.0); MEAN CORPUSCULAR HGB CONC 33.3 g/dL (32.0-36.0); MEAN CORPUSCULAR VOLUME 94.9 fL (81.0-99.0); MEAN PLATELET VOLUME 9.6 fL (7.9-10.8); MONOCYTES # (AUTO) 0.7 10^3/uL (0.0-1.0); MONOCYTES % (AUTO) 8.7 %; NEUTROPHILS # (AUTO) 4.4 10^3/uL (1.5-6.6); PLT - PLATELET COUNT 274 10^3/uL (130-450); RED BLOOD COUNT 4.75 10^6/uL (4.20-5.40); RED CELL DISTRIBUTION WIDTH 12.4 % (12.0-15.0); WHITE BLOOD COUNT 7.5 x10^3/uL (4.8-10.8)
[2020-10-09 13:06] LABS: ALBUMIN 4.4 g/dL (3.2-5.5); ALBUMIN/GLOBULIN RATIO 1.4 (1.0-2.2); ALKALINE PHOSPHATASE 60 IU/L (42-121); ALT ALANINE AMINOTRANSFERASE 48 IU/L (10-60); AST ASPARTATE AMINOTRANSFERASE 39 IU/L (10-42); BILIRUBIN,TOTAL 1.4 mg/dL (0.2-1.0); BUN - BLOOD UREA NITROGEN 16 mg/dL (6-20); CALCIUM 9.2 mg/dL (8.5-10.3); CARBON DIOXIDE - CO2 26 mmol/L (21-32); CHLORIDE 103 mmol/L (101-111); CHOLESTEROL 283 mg/dL; CREATININE 0.7 mg/dL (0.4-1.0); GFR - MDRD 85 (>89); GLUCOSE 99 mg/dL (70-100); HDL CHOLESTEROL 70 mg/dL; LDL CHOLESTEROL,CALCULATED 179 mg/dL; LDL/HDL RATIO 2.6 (<4.4); POTASSIUM 3.9 mmol/L (3.5-5.0); SODIUM 139 mmol/L (135-145); TOTAL PROTEIN 7.6 g/dL (6.7-8.2); TRIGLYCERIDES 168 mg/dL; VLDL CHOLESTEROL 34 mg/dL
[2020-10-09 13:14] LABS: THYROID STIMULATING HORMONE 0.88 uIU/mL (0.34-5.60)
== END 2020-10-09 12:14 | disposition home or self-care (01) ==
LOC: LAB 12:13
PROVIDERS: ATTEND Physician Assistant Medical
DX: Z00.00 Encounter for general adult medical examination without abnormal findings (principal); I10 Essential (primary) hypertension; E78.5 Hyperlipidemia, unspecified
CPT/HCPCS: 36415; 80053; 80061; 83721; 84443; 85025

== ENCOUNTER 2021-01-15 11:20 | Outpatient (CLI) | payer OTHER ==
--- NOTE | 2021-01-16 15:23 | Mammography Report ---
BILATERAL DIGITAL SCREENING MAMMOGRAM 3D/2D: 01/15/2021 CLINICAL: Routine screening. Comparison is made to exams dated: 07/29/2018 mammogram, 08/05/2017 mammogram, and 12/30/2016 mammogram - [facility]. There are scattered fibroglandular elements in both breasts. No significant masses, calcifications, or other findings are seen in either breast. There has been no significant interval change. IMPRESSION: NEGATIVE There is no mammographic evidence of malignancy. A 1 year screening mammogram is recommended. This exam was interpreted at Station ID: [id number]. NOTE: For mammograms, a report in lay terms will be sent to the patient. Approximately 15% of breast malignancies will not be visualized mammographically. In the management of a palpable breast mass, a negative mammogram must not discourage biopsy of a clinically suspicious lesion. Electronically Signed By: Ace Bucio M.D. [email or web address]:01/15/2021 12:51:56 ACR BI-RADS Category 1: Negative 3341F PARENCHYMAL PATTERN: (A) - The breast(s) demonstrate(s) scattered fibroglandular densities. BI-RADS CATEGORY: (1) - 1 RECOMMENDATION: (ANNUAL) - Recommend routine annual screening mammography. [id number] 1 year screening LATERALITY: (B)
== END 2021-01-15 11:21 | disposition home or self-care (01) ==
LOC: DI 11:20
DX: Z12.31 Encounter for screening mammogram for malignant neoplasm of breast (principal)

== ENCOUNTER 2021-07-09 07:42 | Outpatient (CLI) | payer OTHER ==
[2021-07-09 08:24] LABS: ALBUMIN 4.1 g/dL (3.2-5.5); ALBUMIN/GLOBULIN RATIO 1.2 (1.0-2.2); ALKALINE PHOSPHATASE 59 IU/L (42-121); ALT ALANINE AMINOTRANSFERASE 49 IU/L (10-60); AST ASPARTATE AMINOTRANSFERASE 34 IU/L (10-42); BILIRUBIN,TOTAL 0.9 mg/dL (0.2-1.0); BUN - BLOOD UREA NITROGEN 18 mg/dL (6-20); CALCIUM 9.3 mg/dL (8.5-10.3); CARBON DIOXIDE - CO2 24 mmol/L (21-32); CHLORIDE 106 mmol/L (101-111); CHOL/HDL RATIO 4.2 (<4.4); CHOLESTEROL 268 mg/dL; CREATININE 0.9 mg/dL (0.4-1.0); GFR - MDRD 63 (>89); GLUCOSE 105 mg/dL (70-100); HDL CHOLESTEROL 64 mg/dL; LDL CHOLESTEROL,CALCULATED 169 mg/dL; LDL/HDL RATIO 2.6 (<4.4); SODIUM 140 mmol/L (135-145); TOTAL PROTEIN 7.5 g/dL (6.7-8.2); TRIGLYCERIDES 173 mg/dL; VLDL CHOLESTEROL 35 mg/dL
[2021-07-10 09:37] LABS: HEPATITIS C ANTIBODY NON-REACTIVE (NON-REACTIVE)
[2021-07-10 11:53] LABS: HEPATITIS B SURFACE ANTIGEN NON-REACTIVE (NON-REACTIVE)
== END 2021-07-09 07:43 | disposition home or self-care (01) ==
LOC: LAB 07:42
PROVIDERS: ATTEND Physician Assistant Medical
DX: E78.5 Hyperlipidemia, unspecified (principal); R74.8 Abnormal levels of other serum enzymes
CPT/HCPCS: 36415; 80053; 80061; 83721; 86317; 86704; 86709; 86803; 87340

== ENCOUNTER 2021-10-01 17:56 | Outpatient (CLI) | payer OTHER ==
--- NOTE | 2021-10-02 09:32 | XRAY Report ---
PROCEDURE: Chest 2 View X-Ray INDICATIONS: Asthmatic bronchitis TECHNIQUE: 2 view(s) of the chest. COMPARISON: None. FINDINGS: Surgical changes and devices: None. Lungs and pleura: No pleural effusions or pneumothorax. Lungs are clear. Mild peribronchial cuffin g. Mediastinum: Mediastinal contours are normal. Heart size is normal. Bones and chest wall: No suspicious bony abnormalities. Soft tissues appear unremarkable. IMPRESSION: Central/perihilar peribronchial cuffing is consistent with the provided history of asthma or chronic bronchitis. No acute process identified. Reviewed by: Bunny Woodward MD on 10/02/2021 9:30 AM PDT Approved by: Bunny Woodward MD on 10/02/2021 9:30 AM PDT Station ID: [id number]
== END 2021-10-01 23:59 | disposition home or self-care (01) ==
LOC: DI.N 17:56
PROVIDERS: ATTEND Family Medicine
DX: J45.909 Unspecified asthma, uncomplicated (principal)

== ENCOUNTER 2022-11-13 08:57 | Outpatient (CLI) | payer OTHER ==
[2022-11-13 09:19] LABS: BASOPHILS # (AUTO) 0.1 10^3/uL (0.0-0.1); BASOPHILS % (AUTO) 1.3 %; EOSINOPHILS # (AUTO) 0.1 10^3/uL (0.0-0.7); EOSINOPHILS % (AUTO) 2.4 %; HCT - HEMATOCRIT 45.2 % (37.0-47.0); HGB - HEMOGLOBIN 15.1 g/dL (12.0-16.0); LYMPHOCYTES # (AUTO) 2.1 10^3/uL (1.5-3.5); LYMPHOCYTES % (AUTO) 35.5 %; MEAN CORPUSCULAR HEMOGLOBIN 31.5 pg (27.0-31.0); MEAN CORPUSCULAR HGB CONC 33.4 g/dL (32.0-36.0); MEAN CORPUSCULAR VOLUME 94.4 fL (81.0-99.0); MEAN PLATELET VOLUME 9.7 fL (7.9-10.8); MONOCYTES # (AUTO) 0.5 10^3/uL (0.0-1.0); MONOCYTES % (AUTO) 7.7 %; NEUTROPHILS # (AUTO) 3.1 10^3/uL (1.5-6.6); NEUTROPHILS % (AUTO) 52.6 %; PLT - PLATELET COUNT 274 10^3/uL (130-450); RED BLOOD COUNT 4.79 10^6/uL (4.20-5.40); RED CELL DISTRIBUTION WIDTH 11.9 % (12.0-15.0)
[2022-11-13 09:37] LABS: ALBUMIN 3.9 g/dL (3.2-5.5); ALBUMIN/GLOBULIN RATIO 1.1 (1.0-2.2); ALKALINE PHOSPHATASE 59 IU/L (42-121); ALT ALANINE AMINOTRANSFERASE 40 IU/L (10-60); AST ASPARTATE AMINOTRANSFERASE 34 IU/L (10-42); BUN - BLOOD UREA NITROGEN 14 mg/dL (6-20); CALCIUM 8.8 mg/dL (8.5-10.3); CARBON DIOXIDE - CO2 27 mmol/L (21-32); CHLORIDE 106 mmol/L (101-111); CHOL/HDL RATIO 4.5 (<4.4); CHOLESTEROL 277 mg/dL; CREATININE 0.8 mg/dL (0.4-1.0); GFR - MDRD 72 (>89); GLUCOSE 100 mg/dL (70-100); HDL CHOLESTEROL 62 mg/dL; LDL CHOLESTEROL,CALCULATED 171 mg/dL; LDL/HDL RATIO 2.8 (<4.4); POTASSIUM 4.1 mmol/L (3.5-5.0); SODIUM 139 mmol/L (135-145); TOTAL PROTEIN 7.3 g/dL (6.7-8.2); TRIGLYCERIDES 222 mg/dL; VLDL CHOLESTEROL 44 mg/dL
[2022-11-14 04:09] LABS: HCV AB Non Reactive (Non Reactive)
== END 2022-11-13 08:58 | disposition home or self-care (01) ==
LOC: LAB 08:57
PROVIDERS: ATTEND Internal Medicine
DX: D64.9 Anemia, unspecified (principal); R74.8 Abnormal levels of other serum enzymes; Z79.899 Other long term (current) drug therapy; Z11.9 Encounter for screening for infectious and parasitic diseases, unspecified
CPT/HCPCS: 36415; 80053; 80061; 83721; 84443; 85025; 86803

== ENCOUNTER 2022-11-21 07:45 | Outpatient (CLI) | payer OTHER ==
--- NOTE | 2022-11-21 09:09 | Mammography Report ---
BILATERAL DIGITAL SCREENING MAMMOGRAM 3D/2D: 11/21/2022 CLINICAL: Routine screening. Comparison is made to exams dated: 01/15/2021 mammogram, 07/29/2018 mammogram, 08/05/2017 mammogram, 01/13 mammogram, 12/30/2016 mammogram, and 05/08/2015 mammogram - [facility]. There are scattered areas of fibroglandular density in both breasts (category b / 25%-50% glandular t issue). No significant masses, calcifications, or other findings are seen in either breast. There has been no significant interval change. IMPRESSION: NEGATIVE There is no mammographic evidence of malignancy. A 1 year screening mammogram is recommended. Based on the Tyrer Cuzick model (a risk assessment model) the patients lifetime risk is 16.9% and he r 10 year risk is 8.4%. According to the ACR, ACS, and NCCN guidelines, an annual breast MRI exam evy ng with mammogram is recommended if the patients lifetime risk is 20% or greater. This exam was interpreted at Station ID: [id number]. NOTE: For mammograms, a report in lay terms will be sent to the patient. Approximately 15% of breast malignancies will not be visualized mammographically. In the management of a palpable breast mass, a negative mammogram must not discourage biopsy of a clinically suspicious lesion. Electronically Signed By: Armaan [email or web address]/[email or web address]:11/21/2022 08:23:07 letter sent: No_Letter ACR BI-RADS Category 1: Negative 3341F PARENCHYMAL PATTERN: (A) - The breast(s) demonstrate(s) scattered fibroglandular densities. BI-RADS CATEGORY: (1) - 1 Mammogram [id number] 1 year screening LATERALITY: (B)
== END 2022-11-21 07:46 | disposition home or self-care (01) ==
LOC: DI 07:45
PROVIDERS: ATTEND Internal Medicine
DX: Z12.31 Encounter for screening mammogram for malignant neoplasm of breast (principal)

== ENCOUNTER 2023-01-24 18:12 | Emergency (ER) | payer OTHER ==
[2023-01-24 18:22] VITALS: O2SAT 98
--- OUTSIDE RECORDS SUMMARY | 2023-01-24 18:41 | EXTERNAL MEDICAL SUMMARY RPT | Continuity of Care Document ---
Author Name Unknown Address [address] [place] [address] Phone Organization [facility] Address [address] [place] [address] Phone Care Team Providers Care Beater Out Leveling Machine Name Role Phone Unavailable Unavailable Unavailable [facility], Provider Unavailable Unavailable Problems date description facility 2022-11-13 00:00 Insomnia All 2022-11-13 00:00 H/O: gastrointestinal disease A 2022-11-13 00:00 Unspecified disorder of lipoid metabolism All 2022-11-13 00:00 Dyslipidemia All 2022-11-13 00:00 Hypertensive disorder All 2022-11-13 00:00 Unspecified essential hypertens ion All 2022-11-13 00:00 History of polyp of colon All 2022-11-13 00:00 Allergic rhinitis, cause unspec ified All 2022-11-13 00:00 Allergic rhinitis All 2022-11-13 00:00 Disorder of lipoprotein metabol ism, unspecified All 2022-11-13 00:00 Insomnia, unspecified All 2022-11-13 00:00 Essential (primary) hypertensio n All 2022-11-13 00:00 Allergic rhinitis, unspecified All 2022-11-13 00:00 Personal history of other disea ses of digestive system All 2022-11-13 00:00 Family history of ma lignant neoplasm of gastrointestinal tract All 2022-11-13 00:00 Family history of malignant elis plasm of digestive organs All 2022-11-13 00:00 Family history of malignant elis plasm of breast All 2022-11-13 00:00 Personal history of colonic ottoniel yps All 2022-11-13 00:00 Personal history of other disea ses of the digestive system All 2022-11-14 00:00 Insomnia All 2022-11-14 00:00 H/O: gastrointestinal disease A 2022-11-14 00:00 Unspecified disorder of lipoid metabolism All 2022-11-14 00:00 Dyslipidemia All 2022-11-14 00:00 Hypertensive disorder All 2022-11-14 00:00 Unspecified essential hypertens ion All 2022-11-14 00:00 History of polyp of colon All 2022-11-14 00:00 Allergic rhinitis, cause unspec ified All 2022-11-14 00:00 Allergic rhinitis All 2022-11-14 00:00 Disorder of lipoprotein metabol ism, unspecified All 2022-11-14 00:00 Insomnia, unspecified All 2022-11-14 00:00 Essential (primary) hypertensio n All 2022-11-14 00:00 Allergic rhinitis, unspecified All 2022-11-14 00:00 Personal history of other disea ses of digestive system All 2022-11-14 00:00 Family history of ma lignant neoplasm of gastrointestinal tract All 2022-11-14 00:00 Family history of malignant elis plasm of digestive organs All 2022-11-14 00:00 Family history of malignant elis plasm of breast All 2022-11-14 00:00 Personal history of colonic ottoniel yps All 2022-11-14 00:00 Personal history of other disea ses of the digestive system All Results/Labs test date facility value unit notes
[2023-01-24] MEDS ORDERED: IBUPROFEN 800 MG TABLET PO STA (18:44)
[2023-01-24] MEDS ORDERED: AMOX/CLAV 875 MG/125 MG TABLET PO STA (18:44)
--- NOTE | 2023-01-24 18:46 | ED Physician Documentation ---
PD HPI HEENT - Stated complaint Stated Complaint: SINUS PX - Chief complaint Chief Complaint: Heent - History obtained from History obtained from: Patient (She has had left-sided maxillary sinus pain and upper tooth pain for a week. Is associated with mild drainage. No fevers. She has tried regular dose ibuprofen without relief.) PD PAST MEDICAL HISTORY - Past Medical History Cardiovascular: Hypertension, High cholesterol Respiratory: None Endocrine/Autoimmune: None GI: GERD, GI bleed, Other : None HEENT: Chronic vision loss Psych: Claustrophobia Musculoskeletal: None Derm: None - Past Surgical History Past Surgical History: No General: Colonoscopy, EGD Derm: Other - Present Medications Home Medications: Ambulatory Orders Medication Instructions Recorded Confirmed Epinephrine [Epipen] 0.3 mg IM ONCE PRN #2 unit 02/01/13 06/25/15 Metoprolol Tartrate 25 mg PO 08/02/13 06/25/15 hydroCHLOROthiazide 25 mg PO 08/02/13 06/25/15 [Hydrochlorothiazide] Multivitamin [Multi-Vitamin Daily] 1 DAILY 06/25/15 06/25/15 Albuterol Sulf [Ventolin Hfa 1 - 2 puffs INH Q4HR PRN #1 inhaler 03/04/17 Inhaler] Benzonatate [Tessalon] 100 - 200 mg PO TID PRN #20 capsule 03/04/17 guaiFENesin [Guaifenesin] 100 mg PO 12/16/17 12/16/17 predniSONE [Prednisone] 20 mg PO DAILY 12/16/17 traMADol [Ultram] 50 - 100 mg PO Q6H PRN #20 tablet 12/16/17 HYDROcod/ACETAM 5/325 [Ovid 5/325] 1 tab PO Q6H PRN #15 tablet 12/19/17 Ondansetron Odt [Zofran] 4 mg TL Q6H PRN #15 tablet 12/19/17 Amox/Clav 875/125 [Augmentin] 1 each PO Q12H #20 tablet 01/24/23 Ibuprofen [Motrin] 800 mg PO Q8H PRN #30 tablet 01/24/23 - Allergies Allergies/Adverse Reactions: Allergies Allergy/AdvReac Type Severity Reaction Status Date / Time adhesive Allergy Rash Verified 01/24/23 18:15 latex Allergy Hives Verified 01/24/23 18:15 venom-honey bee Allergy throat Verified 01/24/23 18:15 [bee venom (honey bee)] swelling codeine AdvReac Emesis Verified 01/24/23 18:15 - Social History Does the pt smoke?: No Smoking Status: Never smoker Does the pt drink ETOH?: Yes Does the pt have substance abuse?: No PD ED PE NORMAL - Vitals Vital signs reviewed: Yes - General General: Alert and oriented X 3, No acute distress - HEENT HEENT: Other (Tender over the left maxillary sinus. Upper teeth appear without cavities. Swollen nasal mucosa on the left.) - Neck Neck: Supple, no meningeal sign, No bony TTP - Neuro Neuro: Alert and oriented X 3, Normal speech Results - Vitals Vitals: Vital Signs - 24 hr 01/24/23 18:15 Temperature 36.5 C Heart Rate 68 Respiratory 16 Rate Blood Pressure 145/84 H O2 Saturation 98 Oxygen O2 Source Room air Departure - Departure Disposition: 01 Home, Self Care Clinical Impression: Sinusitis Condition: Good Record reviewed to determine appropriate education?: Yes Instructions: ED Sinusitis Abx Tx Prescriptions: Amox/Clav 875/125 [Augmentin] 1 each PO Q12H #20 tablet Ibuprofen [Motrin] 800 mg PO Q8H PRN #30 tablet PRN Reason: PAIN &/OR FEVER Comments: I sent your prescriptions electronically to [facility] in [place]. Return if worse. Follow-up with your primary care physician and/or your dentist if not better in a week.
[2023-01-24 18:57] VITALS: BP 142/82
== END 2023-01-24 18:55 | disposition home or self-care (01) ==
LOC: ED 18:12
DX: J32.9 Chronic sinusitis, unspecified (principal); I10 Essential (primary) hypertension
CPT/HCPCS: 99282; 99283; A9270

== ENCOUNTER 2023-04-03 14:56 | Outpatient (CLI) | payer OTHER ==
--- NOTE | 2023-04-03 16:18 | Ultrasound Report ---
PROCEDURE: Pelvic w/Transvaginal INDICATIONS: POSTMENOPAUSAL BLEEDING TECHNIQUE: Real-time scanning was performed of the pelvic organs, with image documentation. Additional endovagi nal scanning was necessary due to incomplete visualization of the adnexal and endometrial structures by transabdominal scanning. COMPARISON: None. FINDINGS: Uterus: Uterus is anteverted and normal in size at 6.4 x 2.2 x 2.3 cm. The myometrium is heterogene ous. The endometrium measures 3 mm in combined thickness. No fibroids noted. Ovaries: The right ovary measures 1.6 x 0.9 x 1.0 cm, with a calculated ovarian volume of 0.7 cc. T he left ovary measures 1.6 x 0.9 x 1.5 cm, with a calculated ovarian volume of 1.1 cc. Expected post menopausal appearance. No cystic lesions measuring greater than 3 cm. Other: No pathologic free abdominal or pelvic fluid. IMPRESSION: Unremarkable pelvic ultrasound. Reviewed by: Meliton Peoples MD on 04/03/2023 4:17 PM PDT Approved by: Meliton Peoples MD on 04/03/2023 4:17 PM PDT Station ID: [id number]
== END 2023-04-03 14:57 | disposition home or self-care (01) ==
LOC: DI 14:56
PROVIDERS: ATTEND Internal Medicine
DX: N95.0 Postmenopausal bleeding (principal)

== ENCOUNTER 2023-07-08 23:53 | Emergency (ER) | payer OTHER ==
[2023-07-09 00:32] LABS: RAPID STREP SCREEN Negative (Negative)
--- NOTE | 2023-07-09 00:32 | ED Physician Documentation ---
History of Present Illness - Stated complaint Stated Complaint: SOA/COVID+ - Chief complaint Chief Complaint: Resp - History obtained from History obtained from: Patient - Additonal information Additional information: 68yF with pmh htn on metoprolol and hctz p/w nonproductive cough, soa and sore throat X 2 days with +covid test yesterday. denies fever/chills, n/v/d abdominal pain. PD PAST MEDICAL HISTORY - Past Medical History Cardiovascular: Hypertension, High cholesterol Respiratory: None Endocrine/Autoimmune: None GI: GERD, GI bleed, Other : None HEENT: Chronic vision loss Psych: Claustrophobia Musculoskeletal: None Derm: None - Past Surgical History Past Surgical History: No General: Colonoscopy, EGD Derm: Other - Present Medications Home Medications: Ambulatory Orders Medication Instructions Recorded Confirmed Epinephrine [Epipen] 0.3 mg IM ONCE PRN #2 unit 02/01/13 07/09/23 Metoprolol Tartrate 25 mg PO DAILY 08/02/13 07/09/23 hydroCHLOROthiazide 25 mg PO DAILY 08/02/13 07/09/23 [Hydrochlorothiazide] Multivitamin [Multi-Vitamin Daily] 1 tab PO DAILY 06/25/15 07/09/23 Albuterol Sulf [Ventolin Hfa 1 - 2 puffs INH Q4HR PRN #1 inhaler 03/04/17 Inhaler] HYDROcod/ACETAM 5/325 [Rogers 5/325] 1 tab PO Q6H PRN #15 tablet 12/19/17 Ibuprofen [Motrin] 800 mg PO Q8H PRN #30 tablet 01/24/23 07/09/23 Nirmatrelvir/Ritonavir [Paxlovid 1 each PO BID #10 tab 07/09/23 300-100 mg Dose Pack] - Allergies Allergies/Adverse Reactions: Allergies Allergy/AdvReac Type Severity Reaction Status Date / Time adhesive Allergy Rash Verified 07/09/23 00:35 latex Allergy Hives Verified 07/09/23 00:35 venom-honey bee Allergy throat Verified 07/09/23 00:35 [bee venom (honey bee)] swelling codeine AdvReac Emesis Verified 07/09/23 00:35 - Social History Does the pt smoke?: No Smoking Status: Never smoker Does the pt drink ETOH?: Yes Does the pt have substance abuse?: No PD ED PE NORMAL - Vitals Vital signs reviewed: Yes - General General: Alert and oriented X 3, No acute distress, Well developed/nourished - HEENT HEENT: Atraumatic, PERRL, EOMI, Moist mucous membranes, Pharynx benign - Neck Neck: Supple, no meningeal sign - Cardiac Cardiac: RRR - Respiratory Respiratory: No respiratory distress, Clear bilaterally - Abdomen Abdomen: Non tender, Non distended - Derm Derm: Normal color, Warm and dry - Neuro Neuro: Alert and oriented X 3 - Psych Psych: Normal mood, Normal affect Results - Vitals Vitals: Vital Signs - 24 hr 07/09/23 00:07 Temperature 36.8 C Heart Rate 67 Respiratory 18 Rate Blood Pressure 176/86 H O2 Saturation 98 Oxygen O2 Source Room air - Labs Labs: Laboratory Tests 07/09/23 00:16 Group A Strep Rapid Negative PD Medical Decision Making - ED course ED course: 68yF presents with covid symptoms since yesterday and +home covid test. she has normal vital signs here in the ED aside from mild hypertension. lungs CTAB. no increased wob. offered paxlovid treatment and she agreed thus it was sent to pharmacy. return precautions given. Departure - Departure Disposition: Home, Self Care Clinical Impression: COVID Condition: Stable Instructions: ED Viral Syndrome Prescriptions: Nirmatrelvir/Ritonavir [Paxlovid 300-100 mg Dose Pack] 1 each PO BID #10 tab Comments: You were seen in the emergency department for COVID. Prescription was sent electronically to [facility] in [place]. Please follow-up with your primary care provider and return to the emergency department if you have any new or worsening symptoms or other concerns. Forms: PCP List
[2023-07-09 01:15] VITALS: BP 118/67; O2SAT 97
== END 2023-07-09 01:11 | disposition home or self-care (01) ==
LOC: ED 23:53
DX: U07.1 COVID-19 (principal); I10 Essential (primary) hypertension; E78.00 Pure hypercholesterolemia, unspecified; Z79.899 Other long term (current) drug therapy; Z91.040 Latex allergy status
CPT/HCPCS: 87070; 87430; 99283